=== PATIENT | female | born 1970 | race Caucasian/White ===

== ENCOUNTER 2023-09-26 18:20 | Observation (INO) | payer OTHER, SELFPAY ==
--- NOTE | ~2023-09-26 | MR_ITS ---
MRI of the brain Clinical History: Retrograde amnesia Technique: Axial and sagittal T1-weighted images were acquired. These were followed by axial T2-weigh ashanti, diffusion weighted, gradient, and FLAIR images. Following intravenous administration of 12 cc Mu ltiHance gadolinium, T1-weighted fat-sat imaging was performed in the axial and coronal planes. Findings: There is no abnormal signal in the brain parenchyma. No acute infarct, intracranial hemorrh age or mass lesion. Ventricles and subarachnoid spaces are unremarkable. Orbits are unremarkable. Paranasal sinuses and m astoid air cells are clear. Major intracranial flow voids are intact. Sagittal midline structures are intact. No abnormal postcontrast enhancement identified. IMPRESSION: Unremarkable exam. Reviewed, dictated and finalized at location M. SMISSION INSPECTOR IMPRESSION: Unremarkable exam.
--- NOTE | ~2023-09-26 | XR_ITS ---
EXAMINATION: XR chest 2V DATE: 09/26/2023 19:13 INDICATION: Cough. TECHNIQUE: Frontal and lateral views of the chest were obtained. COMPARISON: None. FINDINGS: There is no pneumonia, pleural effusion, or pneumothorax. The heart size is normal. Surgica l clips are noted in the chest wall. IMPRESSION: 1. No acute cardiopulmonary disease. Reviewed, dictated and finalized at location E. RACT NEGOTIATION MANAGER
--- NOTE | ~2023-09-26 | CT_ITS ---
EXAMINATION: CTA brain carotid DATE: 09/26/2023 20:00 INDICATION: Neurological deficit. TECHNIQUE: Computed tomographic angiography (CTA) of the head was performed with 100 mL Omnipaque-350 intravenous contrast. CTA of the neck was performed with intravenous contrast. Automated exposure co ntrol and iterative reconstruction technique were employed. The dose-length product was 1022.13 mGy-c m. Maximum intensity projection and volume rendered 3D-reconstructions were created by the [employer] st on a separate workstation. COMPARISON: Head CT 09/26/2023 FINDINGS: HEAD CTA: There is no intracranial hemorrhage, acute infarction, or abnormal intracranial mass lesion . The ventricles are normal in size. The paranasal sinuses are clear. The orbits are normal. The mast oid air cells are normal. Left vertebral artery is dominant. There is no significant stenosis of basi lar artery or the posterior cerebral arteries. The posterior communicating arteries are normal. There is no significant stenosis of intracranial internal carotid arteries or anterior or middle cerebral arteries. Anterior communicating artery is normal. Right A1 anterior cerebral artery segment is absen t, a normal variant. There is no aneurysm. NECK CTA: There are no pathologically enlarged lymph nodes. There is no significant stenosis of the v ertebral arteries. There is mild plaque in the proximal internal carotid arteries. There is 0% steno sis of the proximal right internal carotid artery relative to normal distal artery lumen diameter (NA SCET criteria). There is 0% stenosis of the proximal left internal carotid artery relative to normal distal artery lumen diameter. There is mild cervical spondylosis. IMPRESSION: 1. Normal brain. 2. No aneurysm or significant intracranial arterial stenosis. 3. 0% stenosis of the proximal internal carotid arteries relative to normal distal artery lumen diame ters (NASCET criteria). Reviewed, dictated and finalized at location E. ETARY OF STATE IMPRESSION: 1. Normal brain. 2. No aneurysm or significant intracranial arterial stenosis. 3. 0% stenosis of the proximal internal carotid arteries relative to normal dis bran artery lumen diameters (NASCET criteria).
--- NOTE | ~2023-09-26 | CT_ITS ---
EXAMINATION: CT brain wo con DATE: 09/26/2023 18:28 INDICATION: New onset confusion. TECHNIQUE: Computed tomography (CT) of the head was performed without intravenous contrast. The mA wa s adjusted according to patient size. Iterative reconstruction technique was employed. The dose-lengt h product was 605.33 mGy-cm. COMPARISON: None FINDINGS: There is no intracranial hemorrhage, acute infarction, or abnormal intracranial mass lesion . The ventricles are normal in size. The paranasal sinuses are clear. The mastoid air cells are ankit l. The orbits are normal. IMPRESSION: 1. Normal brain. Reviewed, dictated and finalized at location E. L MANAGER IMPRESSION: 1. Normal brain.
--- NOTE | 2023-09-26 18:22 | ECG_ITS ---
Measurements Intervals Harvey Rate: 78 P: 16 MA: 116 QRS: 28 QRSD: 94 T: 31 QT: 364 QTc: 416 Interpretive Statements SINUS RHYTHM WITH SHORT MA INTERVAL INCOMPLETE RIGHT BUNDLE BRANCH BLOCK BASELINE WANDER- V4, V6 BORDERLINE ECG NO PREVIOUS ECG AVAILABLE FOR COMPARISON Electronically Signed On 09-26-2023 18:55:46 TECHNOLOGY PROGRAM MANAGER by Cristopher Maki D.O.
--- NOTE | 2023-09-26 18:24 | ED.AMS ---
HPI - Altered Mental Status General Chief Complaint: Altered Mental Status Stated Complaint: s/o confusion since 1729 Time Seen by Provider: 09/26/23 18:22 History of Present Illness HPI narrative: Patient is a 53-year-old female with history of prior breast cancer here with acute confusion. Her last known normal as of approximately 1719, witnessed by significant other. She reportedly went to take a shower and upon leaving the shower was very confused and fearful. She had amnesia to most of the events that occured today, unsure of what was happening, denied any On EMS arrival she was unsure of what is going on and unsure of her medical history. On arrival to the emergency department she is able to tell me that she has a history of prior breast cancer, not currently on any active treatment. She does not use on an antibiotic, is unsure of what this antibiotic is treating, believes it may be due to some sort of cough that she had previously had. No chest pain, no shortness of breath, denies any known urinary symptoms. Denies any numbness or weakness in arms or legs. Related Data Allergies Allergy/AdvReac Type Severity Reaction Status Date / Time No Known Allergies Allergy Verified 09/26/23 18:52 Review of Systems Review of Systems: ROS unobtainable: Yes unobtainable due to mental status Exam Narrative: GENERAL: Well-appearing, well-nourished, and in no acute distress. HEAD: Normocephalic, atraumatic. EYES: PERRLA and EOMI. ENT: Nares clear. Mucous membranes moist. NECK: Supple. CHEST: Clear to auscultation. No respiratory distress. HEART: Regular rate and rhythm. Normal peripheral pulses. ABDOMEN: Soft, nontender, nondistended. EXTREMITIES: Normal range of motion. No edema. SKIN: Warm, dry, no rash. NEURO: No focal deficits. No upper lower extremity drift, no facial droop, no sensory deficits in bilateral upper lower extremities, no gaze deviation. Alert and oriented x2. PSYCH: Normal mood and affect. Course Course Emergency Course: Patient seen and evaluated at [facility] on EMS arrival. She is alert, oriented to self, disoriented to situation. NIH of 1 for her disorientation only, no focal deficits appreciated. LKN 1730. Patient sent to [facility] from [facility]. On chart review, she has never been here before, we have no history on file. Altered mental status workup ordered in addition to COVID, Flu, Influenza, CXR. Patient reevaluated on return from CT. Seems a bit more oriented, continues to have no additional focal neurological deficits. Obtained additional history from significant other at bedside. Case discussed with Dr. Baron, suspects more likely a seizure causing these symptoms than a stroke, does not believe I need to contact stroke team at [facility]. Recommends CTA and admission, will be on consult. CTA negative. Lab work reviewed, unremarkable. Troponin negative. COVID, influenza, RSV negative, ETOH negative. Patient reevaluated, updated on all results. Notes steady improvement of her confusion. Confirmed with Dr. Baron that he recommends MRI brain. Will work on admission. Spoke with Dr. Duval, accepts patient for observation. Vital Signs Vital signs: Vital Signs Temperature 97.7 F 09/26/23 18:31 Pulse Rate 76 09/26/23 18:31 Respiratory Rate 18 09/26/23 18:31 Blood Pressure 148/88 H 09/26/23 18:31 Pulse Oximetry 100 09/26/23 18:31 Oxygen Delivery Room Air 09/26/23 18:31 Temperature 97.7 F 09/26/23 18:31 Pulse Rate 85 09/26/23 18:47 Respiratory Rate 14 09/26/23 18:47 Blood Pressure 156/76 H 09/26/23 18:47 Pulse Oximetry 100 09/26/23 18:47 Oxygen Delivery Room Air 09/26/23 18:31 MDM - Altered Mental Status Lab Data 09/26/23 18:54 09/26/23 18:54 Labs: Lab Results 09/26/23 09/26/23 09/26/23 Range/Units 18:53 18:54 19:44 WBC 8.1 (4.5-10.0) K/mm3 RBC 4.53 (4.2-5.4) M/mm3 Hgb 13.7 (12.0-15.0) g/dL Hct
[2023-09-26 18:31] VITALS: BP 148/88; PULSE 76; RESP 18; TEMP 36.5; O2SAT 100
[2023-09-26 18:47] VITALS: BP 156/76; PULSE 85; RESP 14; O2SAT 100
--- NOTE | 2023-09-26 18:47 | PC.NURSE ---
pt is a resident of [place].
[2023-09-26 19:14] LABS: Basophils Percent Auto 0.4 % (0.2-1.2); Eosinophils Percent Auto 0.2 % (0-4.4); Hematocrit 41.9 % (37.0-47.0); Hemoglobin 13.7 g/dL (12.0-15.0); Immature Granulocyte Absolute 0.02 K/mm3 (0.00-0.031); Immature Granulocyte Percent A 0.2 % (0-0.5); Lymphocytes Absolute Auto 1.94 K/mm3 (0.9-3.2); Mean Corpuscular HGB Conc 32.7 g/dl (32-36); Mean Corpuscular Hemoglobin 30.2 pg (26-34); Mean Corpuscular Volume 92.5 fl (80-100); Monocytes Absolute Auto 0.7 K/mm3 (0.1-0.6); Monocytes Percent Auto 8.3 % (2.6-8.5); Neutrophils Absolute Auto 5.4 K/mm3 (1.3-6.7); Neutrophils Percent Auto 66.9 % (45.5-73.1); Platelet Count Result 368 k/mm3 (150-375); Red Blood Count 4.53 M/mm3 (4.2-5.4); Red Cell Distribution Width 13.2 % (11.5-14.5); White Blood Count 8.1 K/mm3 (4.5-10.0)
[2023-09-26 19:28] LABS: Alanine Aminotransferase 43 U/L (6-35); Albumin Level 4.3 g/dL (3.5-5.1); Alkaline Phosphatase 141 U/L (38-126); Anion Gap 10 mmol/L (8-16); Aspartate Amino Transferase 39 U/L (14-36); Bilirubin,Total 0.9 mg/dL (0.2-1.3); Blood Urea Nitrogen 16 mg/dL (7-17); Calcium 9.4 mg/dL (8.4-10.2); Carbon Dioxide 25 mmol/L (22-30); Chloride 104 mmol/L (98-107); Estimated Glomerular Filt Rate > 60; Glucose 97 mg/dL (65-110); Magnesium 2.2 mg/dL (1.6-2.3); Potassium 3.4 mmol/L (3.4-5.0); Sodium 139 mmol/L (137-145)
[2023-09-26 19:32] LABS: Ethanol < 10 mg/dL (<10)
[2023-09-26 19:33] LABS: Prothrombin Time 13.8 Seconds (11.1-14.7)
[2023-09-26 19:34] LABS: Partial Thromboplastin Time 41.5 SECONDS (22.3-36.8)
[2023-09-26 19:39] LABS: Troponin I < 0.012 ng/mL (0.000-0.034)
[2023-09-26 20:13] LABS: Influenza A QL RT-PCR Negative (Negative); Influenza B QL RT-PCR Negative (Negative); RSV RNA, RT-PCR Negative (Negative); SARS-CoV-2 RNA PCR Negative (Negative)
[2023-09-26 20:56] LABS: Appearance Urine Clear (Clear); Bacteria Urine None Seen /hpf; Bilirubin Urine Negative (Negative); Blood Urine Trace (Negative); Color Urine Yellow (Yellow); Glucose Urine UA Negative (Negative); Ketones Urine Negative (Negative); Leukocyte Esterase Ur 1+ LEU/UL (Negative); Nitrate Urine Negative (Negative); Non Pathogenic Casts 0-2; Protein Urine Negative (Negative); RBC Urine 0-2 /hpf (0-2); Specific Grav Ur 1.007 (1.001-1.035); Squamous Epithelial Cell Urine Occasional /hpf (Few); Urobilinogen Urine 0.2 mg/dL (<2.0); pH Urine 5.5 (5.0-9.0)
[2023-09-26 21:06] VITALS: BP 134/82; PULSE 76; RESP 15; O2SAT 98
[2023-09-26 21:07] LABS: Add Urine Microscopic? YES
[2023-09-26 22:36] VITALS: BMI 23.2
[2023-09-26 22:37] VITALS: BP 126/63; PULSE 76; RESP 18; TEMP 36.6; O2SAT 99
--- NOTE | 2023-09-26 22:45 | ADMGEN ---
This patient, Marleny López, was admitted to Medical Room 340-01. Patient/family oriented to hospital policies and general routines including ID bracelet, bed and alarms, visiting hours, pain management, procedures, bathroom and other care routines, personal items, smoking policy, room service/diet, and visiting hours. Information on how to activate the Rapid Response Team has been discussed. Patient/Family are encouraged to report perceived risks to care and to ask questions if they do not understand what they are told or what they should do.
--- NOTE | 2023-09-26 23:16 | PM.IMHP ---
H&P: HPI History of Present Illness Date/Time: 09/26/23 23:16 Chief Complaint: Patient brought to the ER by her partner for altered mental status Narrative: She is a very pleasant lady from [place], [place] who is here in [facility] to spend new year with her significant other who is from [facility]. She was in her normal state of health until 5:20 p.m. when she went to take a shower and was very confused and fearful upon leaving the shower. She also had amnesia to most of the events that occurred today and was unsure of what was happening. She was brought to the ER for evaluation by EMS. Upon arrival to the emergency department, she was able to tell that she had history of prior breast cancer and she is not on any active treatment. She was alert, oriented to self, but disoriented to the situation. CT scan of head was ordered and upon return from CT scan, she was getting more oriented to situation. Neurology was consulted who recommended to place her under observation for close monitoring and further workup. Review of Systems Review of Systems: 14 systems were reviewed with pertinent positives and negatives per HPI. Except as documented in the HPI/progress notes, all other systems were reviewed and are negative. All systems reviewed & are unremarkable except as noted in HPI and below PMFSH Family History Family History Father Heart attack Cancer of neck Mother Uterine cancer Social History Social History Smoking status: Never smoker Alcohol intake: current Drinks per week: 3 Substance use: never Substance use type: does not use Do You Feel Safe in your Home?: Yes Lack of Transportation: No Lack of Food: Never True Current Housing: I Have Housing Concerned About Future Housing: No Difficulty Paying Gas/Electric Bills: No Difficulty Paying for Meds: No Currently Unemployed: No Education: Bachelor's Degree Difficulty w/ Childcare or Family Care: No Spiritual care concerns: No Meds Home Medications and Allergies Home Medications Medication Instructions Recorded Confirmed Type amoxicillin 875 mg-potassium 1 tablet PO BID 09/26/23 09/26/23 History clavulanate 125 mg tablet eszopiclone 2 mg tablet 2 mg PO HS PRN Insomnia 09/26/23 09/26/23 History ibandronate 150 mg tablet 1 mg PO MONTHLY 09/26/23 09/26/23 History loratadine 10 mg tablet (Claritin) 10 mg PO DAILY PRN allergies 09/26/23 09/26/23 History montelukast 10 mg tablet 10 mg PO DAILY PRN allergies 09/26/23 09/26/23 History pantoprazole 40 mg tablet,delayed 40 mg PO PRN PRN Heartburn 09/26/23 09/26/23 History release Allergies Allergy/AdvReac Type Severity Reaction Status Date / Time No Known Allergies Allergy Verified 09/26/23 18:52 Vital Signs Vital Signs - 24 hr 09/26/23 18:31 09/26/23 18:47 09/26/23 21:06 Temperature 36.5 C Pulse Rate 76 85 76 Respiratory Rate 18 14 15 Blood Pressure 148/88 H 156/76 H 134/82 Pulse Oximetry 100 100 98 Oxygen Delivery Room Air 09/26/23 22:37 Temperature 36.6 C Pulse Rate 76 Respiratory Rate 18 Blood Pressure 126/63 Pulse Oximetry 99 Oxygen Delivery Exam Narrative: PHYSICAL EXAMINATION: Vital signs: Please see the chart General physical exam: Very pleasant lady, lying in bed, appears in no acute distress, cooperative with exam Head/eyes: Atraumatic, EOMI, PERRLA ENT: Moist mucous membranes, nasal passages clear Neck: Supple, full range of motion, trachea midline CVS: S1 + S2, regular rate and rhythm, no murmurs Respiratory: Bilaterally fair air entry in both lung paulson, mild B/L crackles, symmetric chest expansion, no distress Abdomen: Soft, non-tender, bowel sounds +ve, no organomegaly Extremities: No clubbing, no cyanosis, no edema, no calf tenderness Musculoskeletal: Moves all, adequate range of motion, no mus
[2023-09-27] VITALS: PULSE 77
[2023-09-27] MEDS: ACETAMINOPHEN 325 MG TABLET 650 MG PO (01:22)
[2023-09-27 04:00] VITALS: PULSE 76
[2023-09-27 04:11] VITALS: BP 103/61; PULSE 79; RESP 18; TEMP 36.6; O2SAT 97
[2023-09-27] MEDS: PANTOPRAZOLE 40 MG TABLET PO (09:25)
[2023-09-27] MEDS: AMOXICILLIN/CLAVULANATE K 875-125 MG TAB 1 TABLET PO (09:25)
[2023-09-27] MEDS: MONTELUKAST SODIUM 10 MG TABLET PO (09:25)
[2023-09-27] MEDS: ENOXAPARIN 40 MG/0.4 ML SYRINGE SUB-Q (09:26)
--- NOTE | 2023-09-27 10:17 | WPDNEURCNPN ---
Assessment and Plan Assessment and plan (1) Acute confusion: Code(s): R41.0 - Disorientation, unspecified Status: Acute (2) Altered mental status: Code(s): R41.82 - Altered mental status, unspecified Status: Acute Plan Marleny López is a 53 year old female with a history of breast cancer presenting for evaluation of transient episode of confusion. Differential includes transient global amnesia vs seizure vs TIA. MRI brain was normal. - Recommend routine EEG - No anti-seizure medications needed - I do think she should obtain from driving for the next three months, and should be cleared by a provider before resuming. Consult date: 09/27/23 Reason for consult: transient confusion HPI: Marleny López is a 53 year old female with a history of breast cancer presenting for evaluation of confusion. Patient was taking a shower yesterday and after she got out of the shower, she was noted to be confused and fearful by her significant other. She was not aware of what happened on that day either. She presented to [facility] where she had NIH 1 for mild disorientation. She was AOx2 based on documented exam. CT head did not show any acute changes. CTA brain/carotid was negative as well. Patient became more oriented by the time of admission. MRI brain has been done which is normal. B12 level 524 and TSH 1.610 which is normal as well. Alcohol level was negative, but U tox was not obtained. EKG showed sinus rhythm. Blood pressure was 140-150s systolic on admission, but has normalized since then. On discussion with patient, she feels back to baseline currently. She does not have any recollection after coming out of the shower. She does not remember the ambulance coming, asking her questions. She did not know where she was. She is able to remember arriving to the ER. It seems that she has an 1 hour lapse in her memory. Per her SO, there was no obvious seizure like activity such as staring off, twitching/jerking of extremities. She did not have any focal numbness or weakness or change in her speech that he could observe. Review of Systems Review of Systems: All systems reviewed & are unremarkable except as noted in HPI and below PMFSH Family History Family History Father Heart attack Cancer of neck Mother Uterine cancer Social History Social History Smoking status: Never smoker Alcohol intake: current Drinks per week: 3 Substance use: never Substance use type: does not use Do You Feel Safe in your Home?: Yes Lack of Transportation: No Lack of Food: Never True Current Housing: I Have Housing Concerned About Future Housing: No Difficulty Paying Gas/Electric Bills: No Difficulty Paying for Meds: No Currently Unemployed: No Education: Bachelor's Degree Difficulty w/ Childcare or Family Care: No Spiritual care concerns: No Meds Home Medications and Allergies Home Medications Medication Instructions Recorded Confirmed Type amoxicillin 875 mg-potassium 1 tablet PO BID 09/26/23 09/26/23 History clavulanate 125 mg tablet eszopiclone 2 mg tablet 2 mg PO HS PRN Insomnia 09/26/23 09/26/23 History ibandronate 150 mg tablet 1 mg PO MONTHLY 09/26/23 09/26/23 History loratadine 10 mg tablet (Claritin) 10 mg PO DAILY PRN allergies 09/26/23 09/26/23 History montelukast 10 mg tablet 10 mg PO DAILY PRN allergies 09/26/23 09/26/23 History pantoprazole 40 mg tablet,delayed 40 mg PO PRN PRN Heartburn 09/26/23 09/26/23 History release Allergies Allergy/AdvReac Type Severity Reaction Status Date / Time No Known Allergies Allergy Verified 09/26/23 18:52 Vital Signs Vital Signs - 24 hr 09/26/23 18:31 09/26/23 18:47 09/26/23 21:06 Temperature 36.5 C Pulse Rate 76 85 76 Respiratory Rate 18 14 15 Blood Pressure 148/88 H 156/76 H 134/82 Pulse Oximetry 100 100 98
[2023-09-27 12:00] VITALS: PULSE 80
[2023-09-27 13:35] LABS: Amphetamine Screen Urine Negative (Negative); Barbiturate Screen Urine Negative (Negative); Benzodiazepines Screen Urine Negative (Negative); Cannabinoid Screen Urine Negative (Negative); Cocaine Screen Urine Negative (Negative); Methadone Screen Urine Negative (Negative); Opiate Screen Urine Negative (Negative); Phencyclidine Screen Urine Negative (Negative)
[2023-09-27 14:00] VITALS: BP 105/67; PULSE 80; RESP 19; TEMP 36.6; O2SAT 100
[2023-09-27 16:00] VITALS: PULSE 91
--- NOTE | 2023-09-27 18:07 | PM.DS ---
DS: Admitting Diagnosis Discharge Date 09/27/23 Admitting Diagnosis confusion DS: Discharge Diagnosis Discharge Diagnosis (1) Altered mental status: Code(s): R41.82 - Altered mental status, unspecified Status: Acute DS: Summary Hospital Course Hospital Course: Please refer to H&P and neurologist consult note for further details. The pt presented with amnesia coming out of the shower at home, it lasted about an hour. ddx include seizure, TGA, and TIA. MR brain normal. CTA head and neck unremarkable as well. EEG pending, neurologist recommended pt can be dc'ed home, will let her know if there are any significant findings on EEG. d/c on baby aspirin per day. no driving until cleared by PCP. pt educated on adverse effects of aspirin. pt and her boyfriend ok with this plan. full code while she was here. mn'ed in stable condition. Time Spent with Patient Time attestation: Total time spent providing and/or coordinating discharge services: Exam Const: General: cooperative and no acute distress Resp: Effort & Inspection: normal respiratory effort Auscultation: clear to auscultation bilaterally Cardio: Rate: regular rate Rhythm: regular rhythm Heart sounds: S1 normal heart sound present and S2 normal heart sound present GI: GI Palp: No abdominal tenderness Auscultation: normal bowel sounds DS: Data Data Completed and Pending Labs on day of discharge: Labs from last 24 hours 09/27/23 09/26/23 09/26/23 05:15 19:44 18:54 WBC 8.1 RBC 4.53 Hgb 13.7 Hct 41.9 MCV 92.5 MCH 30.2 MCHC 32.7 RDW 13.2 Plt Count 368 MPV 9.0 Immature Gran % (Auto) 0.2 Neut % (Auto) 66.9 Lymph % (Auto) 24.0 Clayton % (Auto) 8.3 Eos % (Auto) 0.2 Baso % (Auto) 0.4 Lymph # (Auto) 1.94 Clayton # (Auto) 0.7 H Eos # (Auto) 0.0 Baso # (Auto) 0.0 Abs Immat Gran (auto) 0.02 Absolute Neuts (auto) 5.4 Absolute Nucleated RBC 0.0 Nucleated RBC % 0.0 PT 13.8 INR 1.0 APTT 41.5 H Sodium 139 Potassium 3.4 Chloride 104 Carbon Dioxide 25 Anion Gap 10 BUN 16 Creatinine 0.60 L Estim Creat Clear Calc Not Reportable Estimated GFR > 60 Glucose 97 Calcium 9.4 Magnesium 2.2 Total Bilirubin 0.9 AST 39 H ALT 43 H Alkaline Phosphatase 141 H Troponin I < 0.012 Total Protein 8.0 Albumin 4.3 Vitamin B12 584.0 TSH (Reflex) 1.610 Urine Color Yellow Urine Appearance Clear Urine pH 5.5 Ur Specific [place] 1.007 Urine Protein Negative Urine Glucose (UA) Negative Urine Ketones Negative Ur Blood (Man) Trace Urine Nitrate Negative Urine Bilirubin Negative Urine Urobilinogen 0.2 Leukocyte Esterase Rfl 1+ H Urine RBC 0-2 Urine WBC 11-20 H Ur Squamous Epith Cells Occasional Urine Bacteria None seen Urine Casts 0-2 Urine Opiates Screen Negative Urine Methadone Screen Negative Ur Barbiturates Screen Negative Ur Phencyclidine Scrn Negative Ur Amphetamine Screen Negative U Benzodiazepines Scrn Negative Urine Cocaine Screen Negative U Cannabinoids Screen Negative Ethyl Alcohol Influenza A (RT-PCR) Negative Influenza B (RT-PCR) Negative RSV (RT-PCR) Negative SARS-CoV-2 RNA (RT-PCR) Negative Blood Type AB Positive Antibody Screen Negative 09/26/23 18:53 WBC RBC Hgb Hct MCV MCH MCHC RDW Plt Count MPV Immature Gran % (Auto) Neut % (Auto) Lymph % (Auto) Clayton % (Auto) Eos % (Auto) Baso % (Auto) Lymph # (Auto) Clayton # (Auto) Eos # (Auto) Baso # (Auto) Abs Immat Gran (auto) Absolute Neuts (auto) Absolute Nucleated RBC Nucleated RBC % PT INR APTT Sodium Potassium Chloride Carbon Dioxide Anion Gap BUN Creatinine Estim Creat Clear Calc Estimated GFR Glucose Calcium Magnesium Total Bilirubin AST ALT Alkaline Phosphatase Troponin I Total Protein A
--- NOTE | 2023-09-28 10:29 | WPDNEUROLOGY ---
Neurology EEG Report General Information Date of Study: 09/27/23 TEST Routine EEG DIAGNOSIS Confusion, memory loss CONDITION OF RECORDING Awake, drowsy, asleep EEG NUMBER [id number] CLINICAL HISTORY Patient reports she was feeling fine yesterday when she became confused and disoriented. The episode lasted about an hours and she does not remember anything about the episode. EEG DESCRIPTION During the awake state with eyes closed well-formed posterior dominant rhythm is not seen. The recording is continuous. There appears to be an excess of beta range activity. No significant asymmetries of background activities are noted. Patient did enter stage II sleep, as noted by the presence of sleep spindles. Occasional spike and sharp waves are noted in the left mid/posterior temporal regions (T3/T5). No electrographic seizures were noted. Hyperventilation and photic stimulation were not performed. IMPRESSION This is an abnormal routine EEG recorded in awake and sleep states due to the presence of: 1: Lack of well-formed posterior dominant rhythm, which may be suggestive of mild encephalopathy due to unspecified cause. 2. Occasional sharp and spike waves originating from the left mid/posterior temporal regions, which may indicate a decreased threshold to have a seizure from a focal onset mechanism. 3. Excess beta activity of the background. Clinical correlation is recommended.
== END 2023-09-27 18:46 | disposition home or self-care (01) ==
LOC: ANHED 21:23 → ANH3MED 09-27 06:36
PROVIDERS: Admitting Provider Family Medicine; Emergency Provider Student in an Organized Health Care Education/Training Program; Visit Provider General Practice
DX: R41.2 Retrograde amnesia (principal); R41.0 Disorientation, unspecified; R94.01 Abnormal electroencephalogram [EEG]; I45.10 Unspecified right bundle-branch block; Z20.822 Contact with and (suspected) exposure to COVID-19; G47.00 Insomnia, unspecified; J30.2 Other seasonal allergic rhinitis; R12 Heartburn; Z85.3 Personal history of malignant neoplasm of breast; F10.90 Alcohol use, unspecified, uncomplicated; Y90.0 Blood alcohol level of less than 20 mg/100 ml; Z79.899 Other long term (current) drug therapy
CPT/HCPCS: 36415; 70450; 70496; 70498; 70553; 71046; 80053; 80307; 81001; 82607; 83735; 84443; 84484; 85025; 85610; 85730; 86850; 86900; 86901; 87086; 87637; 93005; 95816; 96372; 99285; A9270; A9577; G0378; J1650; Q9967